=== PATIENT | male | born 1960 | race Caucasian/White ===

== ENCOUNTER 2017-02-03 07:47 | Emergency (ER) | payer BC ==
--- NOTE | 2017-02-03 09:49 | UC ---
Complaint Male HPI - HPI Summary HPI Summary: PT WITH KNOWN BPH NOT ON ANY MEDS COMES IN WITH INABILITY TO VOID SINCE 4AM TODAY. HAS URINARY BLADDER PRESSURE AND DISCOMFORT. DENIES FEVER. NO NAUSEA. - History of Current Complaint Chief Complaint: UCGU Stated Complaint: TROUBLE URINATING Time Seen by Provider: 02/03/17 09:43 Hx Obtained From: Patient Onset/Duration: Sudden Onset, Lasting Hours, Still Present Timing: Constant Severity Initially: Mild Severity Currently: Moderate Pain Intensity: 7 Pain Scale Used: 0-10 Numeric Location: Suprapubic Character: Constant Pressure Aggravating Factor(s): Nothing Alleviating Factor(s): Nothing Associated Signs And Symptoms: Negative: Back Pain, Fever, Nausea - Allergies/Home Medications Allergies/Adverse Reactions: Allergies Allergy/AdvReac Type Severity Reaction Status Date / Time No Known Allergies Allergy Verified 02/03/17 08:39 Home Medications: Home Medications NK [No Home Medications Reported] 02/03/17 [History Confirmed 02/03/17] PMH/Surg Hx/FS Hx/Imm Hx - Additional Past Medical History Additional PMH: BPH Endocrine History Of: Denies: Diabetes, Thyroid Disease Cardiovascular History Of: Reports: Hypertension - "OFF AND ON" Denies: Cardiac Disorders Respiratory History Of: Denies: COPD, Asthma GI/ History Of: Denies: Ulcer - Surgical History Surgical History: None - Family History Known Family History: Positive: Hypertension Family History: BPH - DAD - Social History Alcohol Use: None Substance Use Type: None Smoking Status (MU): Never Smoked Tobacco Review of Systems Constitutional: Negative Respiratory: Negative Cardiovascular: Negative Gastrointestinal: Abdominal Pain Genitourinary: Other - UNABLE TO URINATE, BLADDER PRESSURE All Other Systems Reviewed And Are Negative: Yes Physical Exam Triage Information Reviewed: Yes Appearance: Well-Appearing, No Pain Distress, Well-Nourished Vital Signs: Initial Vital Signs Temp 97.8 F 02/03/17 08:33 Pulse 80 02/03/17 08:33 Resp 18 02/03/17 08:33 BP 179/92 02/03/17 08:33 Pulse Ox 98 02/03/17 08:33 Vital Signs Reviewed: Yes Eyes: Positive: Conjunctiva Clear ENT: Positive: Hearing grossly normal Respiratory Exam: Normal Cardiovascular Exam: Normal Abdomen Description: Positive: Soft, Other: - SUPRAPUBIC TENDERNESS. Negative: CVA Tenderness (R), CVA Tenderness (L) Musculoskeletal: Positive: No Edema Neurological: Positive: Alert Psychological: Positive: Age Appropriate Behavior Skin: Negative: rashes Diagnostics - Laboratory Diagnostic Studies Completed/Ordered: URINE DIP SP. GR. 1.015, 1+ BLOOD, 2+ LEUKS, 1+ PROTEIN (NOT ENOUGH VOLUME FOR A CULTURE TO BE SENT) Complaint Male Course/Dx - Differential Dx/Diagnosis Provider Diagnoses: URINARY OBSTRUCTION - Physician Notifications Discussed Patient Care With: YUE SANTOS Time Discussed With Above Provider: 09:54 - TO [facility] BY PRIVATE CAR Discharge - Discharge Plan Condition: Stable Disposition: AGAINST MEDICAL ADVICE Referrals: Brendan Walker MD [Primary Care Provider] -
== END 2017-02-03 09:57 | disposition left against medical advice (07) ==
LOC: UCEAST 07:47
DX: N13.9 Obstructive and reflux uropathy, unspecified (principal); N40.0 Benign prostatic hyperplasia without lower urinary tract symptoms; I10 Essential (primary) hypertension
CPT/HCPCS: 81003; 99202; G0463

== ENCOUNTER 2017-02-03 10:17 | Emergency (ER) | payer BC ==
[2017-02-03 14:14] LABS: Hematocrit 44 % (42-52); Hemoglobin 14.8 g/dl (14.0-18.0); Mean Corpuscular HGB Conc 34 g/dl (31-36); Mean Corpuscular Hemoglobin 30 pg (27-31); Mean Corpuscular Volume 87 fL (80-94); Mean Platelet Volume 9 um3 (7.4-10.4); Red Blood Count 5.01 10^6/ul (4.0-5.4); Red Cell Distribution Width 13 % (10.5-15); White Blood Count 12.7 10^3/ul (3.5-10.8)
[2017-02-03 14:18] LABS: Urine Bacteria Absent (Absent); Urine Bilirubin Negative (Negative); Urine Glucose Negative (Negative); Urine Nitrite Negative (Negative)
[2017-02-03 14:32] LABS: Albumin 4.2 g/dL (3.2-5.2); BUN/Creatinine Ratio 10.3 (8-20); C Reactive Protein 2.93 mg/L (< 5.00); Calcium 9.2 mg/dL (8.6-10.3); EGFR African American 91.6 (>60); EGFR Non-African American 71.2 (>60); Globulin 2.8 g/dL (2-4); Magnesium 2.2 mg/dL (1.9-2.7); Total Bilirubin 0.4 mg/dL (0.2-1.0)
[2017-02-03] MEDS ORDERED: Iohexol 300* (CONTRAST) 10 ML SDV IV ONE (14:51)
[2017-02-03] MEDS ORDERED: NS 0.9% 1000 ML* 1,000 ML IV ONE (15:23)
--- NOTE | 2017-02-03 15:38 | RAD ---
INDICATION: Urinary retention. BPH. Prostatitis. COMPARISON: None TECHNIQUE: Axial source images were obtained from the hemidiaphragms to the symphysis pubis following administration of oral and intravenous contrast. 143 mL Omnipaque 300 was utilized. Coronal and sagittal reconstructed images were acquired. Lung bases: There is minor platelike atelectasis or scarring both lung bases. The lung bases are otherwise clear. Liver: The liver is normal in size. There are no masses. There is no ductal dilatation. Gallbladder: There are no calcified gallstones. There is no evidence of wall thickening or pericholecystic fluid. Spleen: The spleen is normal in size. There are no masses. There is a small splenule Pancreas: There is no focal pancreatic mass or ductal dilatation. Adrenal glands: There is no evidence of adrenal mass. Kidneys: The kidneys are normal in size and position. There are prompt nephrograms and there is prompt excretion bilaterally. There are no renal parenchymal masses. There is no evidence of nephrolithiasis. Adenopathy: There is no evidence of adenopathy by size criteria. Fluid collections: There are no free or localized fluid collections. Vessels:There are no significant atherosclerotic changes involving the aorta. There is no focal aneurysm. The iliac vessels are normal in caliber. The IVC appears normal. GI tract: Limited evaluation due to lack of oral contrast. The noncontrast CT images demonstrate no acute CT findings. No obstruction is seen. Pelvic organs: The prostate is markedly enlarged measuring 6.5 x 6.6 cm in transverse dimensions. Bladder: The bladder is decompressed by Au catheter and consequently not well evaluated. Abdominal and pelvic soft tissues: The extraperitoneal abdominal and pelvic soft tissues appear normal.. Osseous structures: There are no acute osseous findings. There is moderate spurring of the lower thoracic spine Other: None IMPRESSION: THERE IS MARKED PROSTATIC ENLARGEMENT. THE BLADDER IS DECOMPRESSED WITH A AU CATHETER. THERE ARE NO ACUTE CT FINDINGS.
--- NOTE | 2017-02-03 16:35 | ED ---
GI/ HPI - HPI Summary HPI Summary: Pt here w/ urinary retention this morning. This has lead to pelvic pain and pressure, starting to move into flank area. Denies testicular pain, penile pain or drainage, fever, chills, N/V/diarrhea. H/o BPH w/o sx of urinary hesitation, urgency, incomplete voiding, dysuria, perineal pain/fullness. [facility] and denies use of medication for this condition - was found on routine exam. Father w/ h/o BPH. - History of Current Complaint Chief Complaint: EDUrogenitalProblems Time Seen by Provider: 02/03/17 11:50 Stated Complaint: UNABLE TO GO TO BATHROOM COMMING FROM [facility] Hx Obtained From: Patient Pain Intensity: 1 - Allergy/Home Medications Allergies/Adverse Reactions: Allergies Allergy/AdvReac Type Severity Reaction Status Date / Time No Known Allergies Allergy Verified 02/03/17 08:39 PMH/Surg Hx/FS Hx/Imm Hx Previously Healthy: Yes Endocrine/Hematology History: Denies: Hx Diabetes, Hx Thyroid Disease Cardiovascular History: Reports: Hx Hypertension - "OFF AND ON" Respiratory History: Denies: Hx Asthma, Hx Chronic Obstructive Pulmonary Disease (COPD) GI History: Denies: Hx Ulcer History: Reports: Hx Benign Prostatic Hyperplasia - no meds Infectious Disease History: No Infectious Disease History: Denies: Hx Clostridium Difficile, Hx Hepatitis, Hx Human Immunodeficiency Virus (HIV), Hx of Known/Suspected MRSA, Hx Shingles, Hx Tuberculosis, Hx Known/ Suspected VRE, Hx Known/Suspected VRSA, History Other Infectious Disease, Traveled Outside the [place] in Last 30 Days - Family History Known Family History: Positive: Hypertension Family History: BPH - DAD - Social History Occupation: Retired - Alcohol Use: None Hx Substance Use: No Substance Use Type: Reports: None Hx Tobacco Use: No Smoking Status (MU): Never Smoked Tobacco Review of Systems Constitutional: Negative Negative: Chest Pain Negative: Shortness Of Breath Gastrointestinal: Other - see HPI Positive: see HPI Musculoskeletal: Negative Skin: Negative Neurological: Negative Negative: Headache Psychological: Normal All Other Systems Reviewed And Are Negative: Yes Physical Exam Triage Information Reviewed: Yes Vital Signs On Initial Exam: Initial Vitals Temp Pulse Resp BP Pulse Ox 98.0 F 84 16 149/82 98 02/03/17 10:20 02/03/17 10:20 02/03/17 10:20 02/03/17 10:20 02/03/17 10:20 Vital Signs Reviewed: Yes Appearance: Positive: Well-Appearing, No Pain Distress - observed pt s/p catheterization placement and drainage - bladder scan revealed 800cc urine and so catheter was placed - pt reported great relief and is in fact hungry and wants to be d/c'd after placement, Well-Nourished Skin: Positive: Warm, Dry Head/Face: Positive: Normal Head/Face Inspection Eyes: Positive: Normal, EOMI, Conjunctiva Clear - anicteric sclera ENT: Positive: Hearing grossly normal, Pharynx normal Neck: Positive: Supple Respiratory/Lung Sounds: Positive: Clear to Auscultation, Breath Sounds Present Cardiovascular: Positive: Normal, RRR Abdomen Description: Positive: Nontender, Soft - s/p catheter placement. Negative: CVA Tenderness (R), CVA Tenderness (L), Distended, Guarding Bowel Sounds: Positive: Present Male Genital Exam: Positive: other - exam deferred d/t potential worsening of condition and lack of benefit to performing EDEN Musculoskeletal: Positive: Normal, Strength/ROM Intact Neurological: Positive: Normal, Sensory/Motor Intact, Alert, Oriented to Person Place, Time, CN Intact II-III Psychiatric: Positive: Normal - Sammie Coma Scale Coma Scale Total: 15 Diagnostics - Vital Signs Vital Signs Temp Pulse Resp BP Pulse Ox 02/03/17 16:00 82 130/78 97 02/03/17 15:43 98.5 F 83 16 119/73 96 02/03/17 15:30 81 119/73 95 02/03/17 15:23 130/74 02/03/17 15:05 81 94 02/03/17 15:00 77 127/72 96 02/03/17 14:30 75 120/71 96 02/03/17 14:00 84 129/77 95 02/03/17 13:30 90 153/77 97 02/03/17 13:00 78 139/79 95 02/03/17 12:30 76 136/77 95 02/03/17 12:15 81 96 02/03/17 12:13 144/77 02/03/17 10:20 98.0 F 84 16 149/82 98 - Laboratory Lab Results: Lab Results 02/03/17 02/03/17 02/03/17 Range/Units 12:10 14:05 14:05 WBC 12.7 H (3.5-10.8) 10^3/ul RBC 5.01 (4.0-5.4) 10^6/ul Hgb 14.8 (14.0-18.0) g/dl Hct 44 (42-52) % MCV 87 (80-94) fL MCH 30 (27-31) pg MCHC 34 (31-36) g/dl RDW 13 (10.5-15) % Plt Count 246 (150-450) 10^3/ul MPV 9 (7.4-10.4) um3 Neut % (Auto) 86.6 H (38-83) % Lymph % (Auto) 7.8 L (25-47) % Childress % (Auto) 4.8 (1-9) % Eos % (Auto) 0.1 (0-6) % Baso % (Auto) 0.7 (0-2) % Absolute Neuts (auto) 11.0 H (1.5-7.7) 10^3/ul Absolute Lymphs (auto) 1.0 (1.0-4.8) 10^3/ul Absolute Monos (auto) 0.6 (0-0.8) 10^3/ul Absolute Eos (auto) 0 (0-0.6) 10^3/ul Absolute Basos (auto) 0.1 (0-0.2) 10^3/ul Absolute Nucleated RBC 0 10^3/ul Nucleated RBC % 0 Sodium 141 (133-145) mmol/L Potassium 4.0 (3.5-5.0) mmol/L Chloride 108 (101-111) mmol/L Carbon Dioxide 27 (22-32) mmol/L Anion Gap 6 (2-11) mmol/L BUN 11 (6-24) mg/dL Creatinine 1.07 (0.67-1.17) mg/dL Est GFR ( Amer) 91.6 (>60) Est GFR (Non-Af Amer) 71.2 (>60) BUN/Creatinine Ratio 10.3 (8-20) Glucose 112 H (70-100) mg/dL Lactic Acid (0.5-2.0) mmol/L Calcium 9.2 (8.6-10.3) mg/dL Magnesium 2.2 (1.9-2.7) mg/dL Total Bilirubin 0.40 (0.2-1.0) mg/dL AST 24 (13-39) U/L ALT 54 H (7-52) U/L Alkaline Phosphatase 44 (34-104) U/L C-Reactive Protein 2.93 (< 5.00) mg/L Total Protein 7.0 (6.4-8.9) g/dL Albumin 4.2 (3.2-5.2) g/dL Globulin 2.8 (2-4) g/dL Albumin/Globulin Ratio 1.5 (1-3) Urine Color Yellow Urine Appearance Clear Urine pH 7.0 (5-9) Ur Specific Rohwer 1.010 (1.010-1.030) Urine Protein Negative (Negative) Urine Ketones Negative (Negative) Urine Blood 1+ H (Negative) Urine Nitrate Negative (Negative) Urine Bilirubin Negative (Negative) Urine Urobilinogen Negative (Negative) Ur Leukocyte Esterase Negative (Negative) Urine WBC (Auto) Absent (Absent) Urine RBC (Auto) 1+(3-5/hpf) H (Absent) Urine Bacteria Absent (Absent) Urine Glucose Negative (Negative) 02/03/17 Range/Units 14:05 WBC (3.5-10.8) 10^3/ul RBC (4.0-5.4) 10^6/ul Hgb (14.0-18.0) g/dl Hct (42-52) % MCV (80-94) fL MCH (27-31) pg MCHC (31-36) g/dl RDW (10.5-15) % Plt Count (150-450) 10^3/ul MPV (7.4-10.4) um3 Neut % (Auto) (38-83) % Lymph % (Auto) (25-47) % Childress % (Auto) (1-9) % Eos % (Auto) (0-6) % Baso % (Auto) (0-2) % Absolute Neuts (auto) (1.5-7.7) 10^3/ul Absolute Lymphs (auto) (1.0-4.8) 10^3/ul Absolute Monos (auto) (0-0.8) 10^3/ul Absolute Eos (auto) (0-0.6) 10^3/ul Absolute Basos (auto) (0-0.2) 10^3/ul Absolute Nucleated RBC 10^3/ul Nucleated RBC % Sodium (133-145) mmol/L Potassium (3.5-5.0) mmol/L Chloride (101-111) mmol/L Carbon Dioxide (22-32) mmol/L Anion Gap (2-11) mmol/L BUN (6-24) mg/dL Creatinine (0.67-1.17) mg/dL Est GFR ( Amer) (>60) Est GFR (Non-Af Amer) (>60) BUN/Creatinine Ratio (8-20) Glucose (70-100) mg/dL Lactic Acid 2.5 H* (0.5-2.0) mmol/L Calcium (8.6-10.3) mg/dL Magnesium (1.9-2.7) mg/dL Total Bilirubin (0.2-1.0) mg/dL AST (13-39) U/L ALT (7-52) U/L Alkaline Phosphatase (34-104) U/L C-Reactive Protein (< 5.00) mg/L Total Protein (6.4-8.9) g/dL Albumin (3.2-5.2) g/dL Globulin (2-4) g/dL Albumin/Globulin Ratio (1-3) Urine Color Urine Appearance Urine pH (5-9) Ur Specific Rohwer (1.010-1.030) Urine Protein (Negative) Urine Ketones (Negative) Urine Blood (Negative) Urine Nitrate (Negative) Urine Bilirubin (Negative) Urine Urobilinogen (Negative) Ur Leukocyte Esterase (Negative) Urine WBC (Auto) (Absent) Urine RBC (Auto) (Absent) Urine Bacteria (Absent) Urine Glucose (Negative) Result Diagrams: 02/03/17 14:05 02/03/17 14:05 Lab Statement: Any lab studies that have been ordered have been reviewed, and results considered in the medical decision making process. Re-Evaluation - Re-Evaluation First Eval Change: Improved GIGU Course/Dx - Course Course Of Treatment: Urinary retention w/ pain this morning - h/o BPH - catheter placed and urine released - pt reports relief. CT scan reveals significantly enlarged prostate w/ elevation of WBC, lactic level. IVF provided. Spoke w/ Dr. Cortes who advised bactrim anbx - not cipro d/t resistance, keeping catheter in place and starting flomax w/ f/u next week. Pt was offered f/u through [place] or Dr. Cortes - he prefers the latter and will call to schedule appointment. Reviewed danger s/sx of when to return to ED - pt agrees w/ plan. - Diagnoses Provider Diagnoses: Prostatitis, acute - Physician Notifications Discussed Care Of Patient With: Dr. Cortes Discharge - Discharge Plan Condition: Stable Disposition: HOME Prescriptions: Sulfamethox/Trimethoprim DS* [Bactrim DS 800/160 TAB*] 1 tab PO BID #14 tab Tamsulosin CAP* [Flomax CAP*] 0.4 mg PO DAILY #7 cap Patient Education Materials: Prostatitis (ED), García Catheter Placement and Care (ED) Referrals: Ketan Cortes MD [Medical Doctor] - Additional Instructions: Keep García in place until seen by urology. Call tomorrow to schedule an appointment in 6-7 days. Complete medications as directed. *If you develop fever, chills, abdominal pain, flank pain, vomiting, diarrhea, lower extremity weakness, return to ED
[2017-02-03 16:53] VITALS: BP 134/84
== END 2017-02-03 16:57 | disposition home or self-care (01) ==
LOC: ED 10:17
DX: N41.9 Inflammatory disease of prostate, unspecified (principal); R33.9 Retention of urine, unspecified
CPT/HCPCS: 36415; 74177; 80053; 81003; 81015; 83605; 83735; 85025; 86140; 99283; Q9967